=== PATIENT | male | born 1935 | race Caucasian/White ===

== ENCOUNTER → 2016-10-29 | Outpatient (CLI) | payer OTHER ==
[~2016-10-29] MED LIST: ASPIR 8181 MG PER TUBE; AUGMENTIN 875875 MG PER TUBE; AVODART0.5 MG PER TUBE; CEVIMELINE HCL30 MG PO; DUONEB 2.5-0.5 M3 ML INH; FISH OIL 1,001000 M2 PER TUBE; FLONASE 0.05%50 MCG NASAL; GLUCOSAMINE HC500 MG PER TUBE; IBUPROFEN 600600 M1 PER TUBE; IBUPROFEN 800800 M1 PER TUBE; IBUPROFEN 800800 M1 PO; LEVOTHYROXIN0.075 MG PER TUBE; LIPITOR10 MG PER TUBE; NAMENDA XR28 MG PER TUBE; NORTHERA300 MG PER TUBE; NYSTATIN 1100000 U/M PO; ONE DAILY1 EAC2 PER TUBE; PAXIL10 MG PER TUBE; PREVACID 15 MG15 M4 PER TUBE; PROSCAR 5MG TABL5 MG PER TUBE; PYRIDOSTIGMINE60 MG PER TUBE; TYLENOL325 MG PER TUBE; VITAMIN D1000 UNI1 PER TUBE; ZANTAC 150MG T150 MG PO; ZYRTEC10 MG PER TUBE
--- NOTE | ~2016-10-29 | P ---
[facility] [place] [address] [place] [address] PROCEDURE REPORT Name: ANDRES MORALESN JANIA Room #: REG [facility]#: [id number] Admission: 10/29/16 Attend Phys: Ulises Piedra MD Discharge: Date of : 34 Report #: [id number] THIS REPORT FOR: //name// CC: ULISES Piedra BRIEF HISTORY: The patient is an 80-year-old male with a history of ENT tumor with previous surgery who presents today for replacement of a PEG tube, which is failing. PREOPERATIVE DIAGNOSIS: Dysphagia and aspiration and failing PEG tube. POSTOPERATIVE DIAGNOSIS: Dysphagia and aspiration and failing PEG tube. MEDICATIONS: Deep sedation with propofol per anesthesia. SPECIMEN: None. ESTIMATED BLOOD LOSS: 3 mL. PROCEDURE: Traction PEG removal without endoscopy and reinsertion of new replacement PEG tube through existing fistula tract without endoscopy and silver nitrate cautery of granulation tissue at PEG site. FINDINGS: Prior to sedation, the procedure of tract removal PEG tube and insertion of the PEG tube was discussed with the patient and his . They indicate they understand and desire that we proceed. DESCRIPTION OF PROCEDURE: The patient was placed in the supine position. His head and chest was raised at about 30 to 35 degrees. Bandage was removed and the indwelling PEG tube was exposed. The PEG was intact, but is clearly deteriorating. There was also noted to be a moderate amount of granulation tissue around the PEG tube site. After lubrication of the PEG tube, it was pulled by traction technique without difficulty. The entire tube was removed. We subsequently inserted a replacement 20-[place] gastrostomy tube through the existing fistula with use of the trocar without difficulty. We then used silver nitrate sticks to cauterize the granulation tissue, which was somewhat friable and oozing a small amount of blood. This was done with good results. The bump was slit into position. The patient tolerated the procedure well. DISPOSITION: PEG tube placed without difficulty and they resumed tube feedings [facility] [address] [place] [place] [address] PROCEDURE REPORT Name: JT MORALES Room #: REG [facility]#: [id number] Admission: 10/29/16 Attend Phys: Ulises Piedra MD Discharge: Date of : 34 Report #: [id number] today. There may be some oozing from the granulation tissue. He should return on an as needed basis for replacement of his PEG tube. <ELECTRONICALLY SIGNED> By: Keaton Solis MD 10/30/16 1742 [id number] Keaton Solis MD /nt
== END ==
LOC: GI 09:25
DX: K94.23 Gastrostomy malfunction (principal)
CPT/HCPCS: 62110; 62900

== ENCOUNTER 2017-10-25 12:00 | Emergency (ER) | payer OTHER ==
[~2017-10-25] VITALS: Ht 180.3 cm; Wt 64.9 kg
== END 2017-10-25 12:35 | disposition home or self-care (01) ==
LOC: ER 12:00
DX: K94.23 Gastrostomy malfunction (principal); F17.210 Nicotine dependence, cigarettes, uncomplicated; Z88.0 Allergy status to penicillin

== ENCOUNTER 2018-04-07 18:04 | Emergency (ER) | payer OTHER ==
[~2018-04-07] VITALS: Ht 182.9 cm; Wt 62.1 kg
== END 2018-04-07 20:15 | disposition home or self-care (01) ==
LOC: ER 18:04
DX: K94.23 Gastrostomy malfunction (principal); Z88.0 Allergy status to penicillin; Z87.891 Personal history of nicotine dependence

== ENCOUNTER → 2018-04-08 | Day surgery (SDC) | payer OTHER | END | disposition home or self-care (01) | LOC: GI 12:02 | DX: Z46.59 Encounter for fitting and adjustment of other gastrointestinal appliance and device (principal) ==

== ENCOUNTER → 2018-06-13 | Outpatient (CLI) | payer OTHER ==
[~2018-06-13] VITALS: Ht 180.3 cm; Wt 63.5 kg
[~2018-06-13] MED LIST changes: +GLUCOSAMINE CH1 EA10 PER TUBE; +NAMENDA 10 MG T10 MG PER TUBE; +PAXIL 20 MG TAB20 MG PER TUBE; +PREVACID30 MG PER TUBE; +RANITIDINE PER TUBE; +RANITIDINE15 MG/1 ML PER TUBE
--- NOTE | 2018-06-13 16:52 | P ---
[facility] [place] [address] [place] [address] PROCEDURE REPORT Name: ANDRES MORALESN JANIA Room #: REG [facility]#: [id number] Admission: 06/13/18 Attend Phys: Keaton Solis MD Discharge: Date of : 34 Report #: [id number] THIS REPORT FOR: //name// CC: Vishnu Solis BRIEF HISTORY: The patient is an 82-year-old male with history of ENT cancer and dysphagia and aspiration of the long indwelling PEG tube. His PEG tube is failing and needs to be replaced. Due to the fact he would require PEG tube on a long-term basis, a non-balloon tip was recommended. PREOPERATIVE DIAGNOSIS: Dysphagia and aspiration with failing PEG tube. POSTOPERATIVE DIAGNOSIS: Dysphagia and aspiration with failing PEG tube. MEDICATIONS: Deep sedation with propofol per anesthesia. SPECIMEN: None. ESTIMATED BLOOD LOSS: None. PROCEDURE: EGD with removal of old PEG tube and reinsertion of PEG tube endoscopically. FINDINGS: Prior to propofol sedation, procedure of EGD and PEG tube placement was discussed with the patient as well as potential risks and its complications. He indicates he understands and desires to proceed. With the patient in supine position, his head and chest was raised about 30 degrees, the Olympus video endoscope was inserted in the cervical esophagus under direct vision without difficulty. Examination of this organ through its entire length revealed normal esophageal mucosa down the squamocolumnar junction. The squamocolumnar junction was noted to be unremarkable. Scope was advanced in the stomach, was examined on end view as well as retroflexed views. He had normal appearing mucosa. No masses seen in the cardia of stomach. The existing PEG tube was seen coming through the anterior abdominal wall. No ulcers were seen under the PEG tube disk. The distal esophagus was unremarkable. Pylorus, duodenal bulb, and postbulbar sweep were all unremarkable. The scope was withdrawn back into the body of the stomach and the pulling wire was inserted alongside the existing PEG tube and retrieved with a polypectomy snare and pulled out the mouth. Once the wire was controlled, the endoscope was reinserted, a snare was placed around the PEG tube and it was cut externally and the PEG tube disk was removed endoscopically. We then connected the new PEG tube to the pulling wire. The tube was pulled in position. External restraining devices were applied. The patient tolerated the procedure well. [address] [address] PROCEDURE REPORT Name: JT MORALES Room #: REG [facility]#: [id number] Admission: 06/13/18 Attend Phys: Keaton Solis MD Discharge: Date of : 34 Report #: [id number] CONDITION OF THE PATIENT UPON DISCHARGE: Following procedure, the patient drowsy, aroused, conversant and will be discharged home when fully ambulatory. INSTRUCTIONS TO THE PATIENT AND FAMILY AT THE TIME OF DISCHARGE: The existing PEG fistula was used, so the patient may resume tube feedings immediately. He should return on an as needed basis for problems with this PEG tube. He will continue his current feeding program. <ELECTRONICALLY SIGNED> By: Keaton Solis MD 06/13/18 1652 [id number] [id number] Keaton Solis MD /nt
== END | disposition home or self-care (01) ==
LOC: GI 05-29 15:41
DX: K94.23 Gastrostomy malfunction (principal); R13.19 Other dysphagia; K21.9 Gastro-esophageal reflux disease without esophagitis; E78.5 Hyperlipidemia, unspecified; E03.9 Hypothyroidism, unspecified; Z87.19 Personal history of other diseases of the digestive system; Z85.820 Personal history of malignant melanoma of skin; Z88.0 Allergy status to penicillin; Z85.89 Personal history of malignant neoplasm of other organs and systems; Z95.0 Presence of cardiac pacemaker; Z86.73 Personal history of transient ischemic attack (TIA), and cerebral infarction without residual deficits; Z87.891 Personal history of nicotine dependence; Z79.82 Long term (current) use of aspirin; Z79.899 Other long term (current) drug therapy